=== PATIENT | male | born 1990 ===

== ENCOUNTER 2016-09-18 13:48 | Emergency (ER) | payer OTHER ==
[2016-09-18 14:15] VITALS: BP 135/67; PULSE 75; RESP 20; TEMP 98.3; O2SAT 99
--- NOTE | 2016-09-18 14:55 | ED PDOC ---
HPI: General Adult Time Seen by Provider: 09/18/16 14:52 Chief Complaint (Nursing): Cough, Cold, Congestion Chief Complaint (Provider): cough with sputum History Per: Patient History/Exam Limitations: no limitations Additional Complaint(s): 26yo male with shortness of breath, sore throat for 5 days, worsening. Also reports cough with yellow green sputum. Subjective fever. No body aches. Last tylenol last night. He used theraflu this morning. Reports pain when swallowing. States he gets seasonal allergies sometimes. Past Medical History Reviewed: Historical Data, Nursing Documentation, Vital Signs Vital Signs: Last Vital Signs Temp 98.3 F 09/18/16 14:13 Pulse 75 09/18/16 14:13 Resp 20 09/18/16 14:13 BP 135/67 09/18/16 14:13 Pulse Ox 99 09/18/16 17:32 - Medical History PMH: No Chronic Diseases - Surgical History Surgical History: No Surg Hx - Family History Family History: States: Unknown Family Hx - Social History Current smoker - smoking cessation education provided: Yes (occasional cigar, no cigarettes) Drugs: Denies - Home Medications Home Medications: Ambulatory Orders Medication Instructions Recorded Albuterol 0.083% [Albuterol 0.083% 3 ml IH Q6H PRN #30 neb 09/18/16 Inhal Carissa (2.5 mg/3 ml) UD] Albuterol HFA [Ventolin HFA 90 2 puff IH [id number] PRN #1 bottle 09/18/16 mcg/actuation (8 g)] Azithromycin [Zithromax] 250 mg PO DAILY #6 tab 09/18/16 Loratadine [Claritin] 10 mg PO DAILY #15 tab 09/18/16 Nebulizer [Compact Compressor 1 dev XX PRN PRN #1 dev 09/18/16 Nebulizer] - Allergies Allergies/Adverse Reactions: Allergies Allergy/AdvReac Type Severity Reaction Status Date / Time No Known Allergies Allergy Verified 09/18/16 14:12 Review of Systems ROS Statement: Except As Marked, All Systems Reviewed And Found Negative Constitutional: Positive for: Fever ("feeling hot') Respiratory: Positive for: Cough, Shortness of Breath, Sputum Physical Exam - Reviewed Nursing Documentation Reviewed: Yes Vital Signs Reviewed: Yes - Physical Exam Appears: Positive for: Well, Non-toxic, No Acute Distress (Speaking full sentences) Head Exam: Positive for: ATRAUMATIC, NORMAL INSPECTION, NORMOCEPHALIC Skin: Positive for: Normal Color, Warm, Dry Eye Exam: Positive for: EOMI, PERRL ENT: Positive for: Pharynx Is (Clear). Negative for: Pharyngeal Erythema, Tonsillar Swelling Cardiovascular/Chest: Positive for: Regular Rate, Rhythm Respiratory: Positive for: Normal Breath Sounds. Negative for: Rales, Rhonchi, Wheezing Extremity: Positive for: Normal ROM Neurologic/Psych: Positive for: Alert, Oriented - ECG O2 Sat by Pulse Oximetry: 99 (RA) Pulse Ox Interpretation: Normal - Radiology X-Ray: Interpreted by Me X-Ray Interpretation: No Acute Disease Medical Decision Making Medical Decision Makin CXR, influenza A B ordered Disposition - Clinical Impression Clinical Impression: URI (upper respiratory infection) - Disposition Referrals: [facility] [Outside] Disposition: Routine/Home Disposition Time: 15:52 Condition: STABLE Prescriptions: Albuterol HFA [Ventolin HFA 90 mcg/actuation (8 g)] 2 puff IH [id number] PRN #1 bottle PRN Reason: Shortness Of Breath Albuterol 0.083% [Albuterol 0.083% Inhal Carissa (2.5 mg/3 ml) UD] 3 ml IH Q6H PRN # 30 neb PRN Reason: Shortness Of Breath Azithromycin [Zithromax] 250 mg PO DAILY #6 tab Loratadine [Claritin] 10 mg PO DAILY #15 tab Nebulizer [Compact Compressor Nebulizer] 1 dev XX PRN PRN #1 dev PRN Reason: Shortness Of Breath Instructions: Upper Respiratory Infection (ED) Additional Comments - Additional Comments Additional Comments: Scribe Attestation Documented by Mann Villanueva acting as a scribe for Elise Metzger MD. Provider Attestation: All medical record entries made by the Scribe were at my direction and personally dictated by me. I have reviewed the chart and agree that the record accurately reflects my personal performance of the history, physical exam, medical decision making, and the department course for this patient. I have also personally directed, reviewed, and agree with the discharge instructions and disposition.
--- NOTE | 2016-09-18 16:23 | RAD ---
HISTORY: Cough COMPARISON: None. TECHNIQUE: Chest PA and lateral FINDINGS: LUNGS: No active pulmonary disease. PLEURA: No significant pleural effusion identified. No pneumothorax apparent. CARDIOVASCULAR: Normal. OSSEOUS STRUCTURES: No significant abnormalities. VISUALIZED UPPER ABDOMEN: Normal. OTHER FINDINGS: None. IMPRESSION: No active disease.
== END 2016-09-18 16:20 | disposition home or self-care (01) ==
LOC: H.ER 13:48
DX: J06.9 Acute upper respiratory infection, unspecified (principal); F17.200 Nicotine dependence, unspecified, uncomplicated; R05 Cough